=== PATIENT | female | born 2000 | race Hispanic/Latino ===

== ENCOUNTER 2024-08-30 03:26 | Inpatient (IN) | payer OTHER, SELFPAY ==
[2024-08-30] MEDS ORDERED: Ipratropium/Albuterol 3 ML NEB ONE (04:35)
[2024-08-30] MEDS ORDERED: Ondansetron ODT 4 MG TAB ONE (04:39)
[2024-08-30 05:04] LABS: #Basophils 0.04 10x3/uL (0.0-0.2); %Basophils 0.4 % (0.0-1.0); %Eosinophils 5.2 % (0.0-10.0); %Lymphocytes 12.8 % (21.0-51.0); %Monocytes 5.1 % (0.0-10.0); Hematocrit 40.5 % (36.0-47.0); Hemoglobin 13.7 g/dL (12.0-16.0); Mean Corpuscular HGB CONC 33.8 g/dL (32.0-36.0); Mean Corpuscular Hemoglobin 29.2 pg (27.0-31.0); Mean Corpuscular Volume 86.4 fL (78.0-98.0); Mean Platelet Volume 12.4 fL (7.4-10.4); Platelet Count 171 10x3/uL (130-400); RBC Distribution Width 13.7 % (11.5-14.5); Red Blood Cell (RBC) Count 4.69 mill/uL (4.20-5.40)
[2024-08-30] MEDS ORDERED: Ketorolac Tromethamine 30 MG (1 mL) VIAL ONE (05:14)
[2024-08-30] MEDS ORDERED: methylPREDNISolone Sod Succ/PF 125 MG/2 ML VIAL ONE (05:14)
[2024-08-30 05:19] LABS: ALT (SGPT) 14 U/L (8-55); AST (SGOT) 17 U/L (5-34); Albumin 4.1 g/dL (3.5-5.0); Alkaline Phosphatase 51 U/L (40-110); Anion Gap 13 mmol/L (10-20); BUN (Urea Nitrogen) 11 mg/dL (7.0-18.7); Bilirubin, Total 0.7 mg/dL (0.2-1.2); Calc. Creatinine Clearance 0 mL/min (70-130); Calcium 8.9 mg/dL (7.8-10.44); Carbon Dioxide 20 mmol/L (22-29); Chloride 110 mmol/L (98-107); Estimated GFR 126; Globulin 3.8 g/dL (2.4-3.5); Glucose 105 mg/dL (70-105); Potassium 3.8 mmol/L (3.5-5.1); Protein, Total 7.9 g/dL (6.0-8.3); Sodium 139 mmol/L (136-145)
[2024-08-30 06:06] LABS: Troponin I Less than 0.010 ng/mL (< 0.028)
[2024-08-30] MEDS ORDERED: Ondansetron PF 4 MG/2 ML Vial IVP PRN (07:35)
[2024-08-30] MEDS ORDERED: Calcium Carbonate 500 MG ChewTAB PO PRN (07:35)
[2024-08-30] MEDS ORDERED: Guaifenesin DM 100-10/5 ML UDCUP PO PRN (07:35)
[2024-08-30] MEDS ORDERED: Senokot S 8.6-50 MG TAB PO PRN (07:35)
[2024-08-30] MEDS ORDERED: Benzonatate 100 MG CAP PO PRN (07:39)
[2024-08-30] MEDS ORDERED: Albuterol 200 PUFF (6.7GM INHALER) INH PRN (07:45)
[2024-08-30] MEDS: Azithromycin 500 MG in Sodium Chloride 0.9% 250 ML 250 ML IVPB SCH (10:50)
[2024-08-30] MEDS: Enoxaparin 40 MG (0.4 mL) SYRINGE SC SCH (10:51)
[2024-08-30] MEDS: cefTRIAXone\\ROCEPHIN 1 GM in Sodium Chloride 0.9% 100 ML IVPB SCH (12:00)
[2024-08-30] MEDS ORDERED: Iopamidol-370 76% 500 ML MDV (1 ML CHARGE) ONE (15:05)
[2024-08-30 17:18] VITALS: BMI 26.4
[2024-08-30] MEDS: FLU (Fluarix Triv) TS24-25(6MOS UP)/PF 45 MCG/0.5 ML Syringe IM ONE (17:53)
[2024-08-30] MEDS: Acetaminophen 325 MG TAB PO PRN (18:06)
[2024-08-30] MEDS: HYDROcodone/Acetaminophen 5/325 mg Tablet PO PRN (21:49)
[2024-08-31 05:10] LABS: #Basophils Less than 0.03 10x3/uL (0.0-0.2); %Basophils 0.3 % (0.0-1.0); %Eosinophils 3.3 % (0.0-10.0); %Lymphocytes 30.2 % (21.0-51.0); %Monocytes 9.7 % (0.0-10.0); %Neutrophils 56.4 % (42.0-75.0); Hematocrit 37.3 % (36.0-47.0); Hemoglobin 12.7 g/dL (12.0-16.0); Mean Corpuscular Hemoglobin 29.5 pg (27.0-31.0); Mean Corpuscular Volume 86.5 fL (78.0-98.0); Mean Platelet Volume 12.4 fL (7.4-10.4); Platelet Count 177 10x3/uL (130-400); RBC Distribution Width 13.6 % (11.5-14.5); Red Blood Cell (RBC) Count 4.31 mill/uL (4.20-5.40)
[2024-08-31 05:29] LABS: CRP,High Sensitivity (Inhouse) 3.07 mg/dL (< or = 0.5)
[2024-08-31 05:30] LABS: ALT (SGPT) 11 U/L (8-55); AST (SGOT) 14 U/L (5-34); Albumin 3.6 g/dL (3.5-5.0); Alkaline Phosphatase 42 U/L (40-110); Anion Gap 10 mmol/L (10-20); BUN (Urea Nitrogen) 9 mg/dL (7.0-18.7); Bilirubin, Total 0.7 mg/dL (0.2-1.2); Calc. Creatinine Clearance 125 mL/min (70-130); Calcium 8.9 mg/dL (7.8-10.44); Carbon Dioxide 23 mmol/L (22-29); Chloride 111 mmol/L (98-107); Estimated GFR 125; Globulin 3.6 g/dL (2.4-3.5); Glucose 96 mg/dL (70-105); Potassium 3.7 mmol/L (3.5-5.1); Protein, Total 7.2 g/dL (6.0-8.3); Sodium 140 mmol/L (136-145)
[2024-08-31] MEDS: Mometasone 200 MCG/Formoterol 5 MCG 120 PUFF INHALER INH SCH (07:04)
[2024-08-31] MEDS: predniSONE 20 MG TAB PO SCH (08:20)
[2024-08-31] MEDS ORDERED: Ipratropium/Albuterol 3 ML NEB NEB PRN (12:47)
[2024-08-31] MEDS: methylPREDNISolone Sod Succ/PF 125 MG/2 ML VIAL IVP SCH (13:04)
[2024-09-01 07:27] LABS: HIV (1/2) Antibody/Antigen NONREACTIVE (NonReactive); HIV 1/2 INDEX 0.05 S/CO (<1.00)
[2024-09-01 16:02] VITALS: BP 102/75; TEMP 98.4
[2024-09-02 13:36] LABS: QuantiFERON-TB Gold Plus Indeterminate (Negative)
== END 2024-09-01 16:00 | disposition home or self-care (01) | DRG 194 ==
LOC: ERS 03:26 → SUATTDRO 03:26 → ERHOLD 07:25 → T4-A 09:53 → OBSVTOIN 08-31 16:30
PROVIDERS: ADMIT Internal Medicine; ATTEND Internal Medicine
DX: J18.9 Pneumonia, unspecified organism (principal); J45.901 Unspecified asthma with (acute) exacerbation; F12.90 Cannabis use, unspecified, uncomplicated
CPT/HCPCS: 36415; 71046; 71275; 80053; 83605; 84145; 84484; 85025; 85379; 86141; 86480; 87040; 87070; 87116; 87205; 87206; 87389; 87428; 87633; 90656; 93005; 94640; 94664; 96372; 96374; 96375; 96376; G0378; J0456; J0696; J1650; J1885; J2919; J7050; J7512; J7620; Q0162; Q9967